=== PATIENT | male | born 1945 | race African-American/Black ===

== ENCOUNTER 2017-09-09 02:05 | Outpatient (CLI) | payer MEDICARE | END 2017-09-09 02:06 | disposition home or self-care (01) | LOC: BICULT 02:05 | PROVIDERS: ATTEND Family Medicine | DX: G45.9 Transient cerebral ischemic attack, unspecified (principal) | CPT/HCPCS: 93880 ==

== ENCOUNTER → 2017-11-13 | Day surgery (SDC) | payer MEDICARE ==
[~2017-11-13] MED LIST: Iopamidol 370 76% 100 ML VIAL ONE
--- NOTE | 2017-11-13 09:08 | MRI ---
MRI BRAIN WITHOUT CONTRAST: Date: 11/13/17 HISTORY: Transient neurological symptoms, mental status change. FINDINGS: Correlation is made with the CT scan of 08/30/17. No restricted diffusion is seen. There are multiple foci of T2 prolongation in the periventricular wh ite matter consistent with chronic small vessel ischemic disease. There is blooming artifact in the b sarahi ganglia on gradient echo sequences due to calcifications seen on the CT scan. No evidence of inf arct, hemorrhage, midline shift, or abnormal extra-axial fluid collections are seen. The ventricular size is appropriate and the basilar cisterns are patent. There is mucosal disease in the paranasal si nuses. An old lacunar infarction in the left thalamus is again seen. IMPRESSION: 1. Chronic small vessel ischemic disease. 2. No evidence of acute intracranial process. 3. Paranasal sinus disease. POS: C
--- NOTE | 2017-11-13 10:11 | CT ---
CONTRAST ENHANCED CTA CAROTID ARTERIES: History: Transient neurologic symptoms, R29.818. Patient states he has two episodes of TIAs. Technique: Contrast enhanced CTA carotid arteries performed. 2D and 3D reconstructed images performed on an independent 3D workstation. FINDINGS: There is a 2.2 x 1.0 cm right paratracheal lymph node. No definite evidence of thyroid abnormality seen. No significant evidence of deep cervical lymphadeno shayna seen. The aortic arch demonstrates calcifications. Some calcifications also seen in the right subclavian ar sonido. The right and left common carotid arteries are patent. There is atherosclerotic plaque in the proximal most portion of the right ICA resulting in approximat joan 50% right ICA stenosis. Atherosclerotic plaque also seen in the origin of the left ICA resulting in approximately 70% left ICA stenosis. IMPRESSION: Approximately 70% left ICA and 50% right ICA origin stenosis due to calcified plaque. POS: [facility]
== END ==
LOC: MRI 07:31 → EEG 07:32
PROVIDERS: ATTEND Student in an Organized Health Care Education/Training Program
DX: I65.23 Occlusion and stenosis of bilateral carotid arteries (principal); R41.82 Altered mental status, unspecified; R29.818 Other symptoms and signs involving the nervous system
CPT/HCPCS: 70498; 70551; 95816

== ENCOUNTER 2018-05-26 06:10 | Day surgery (SDC) | payer MEDICARE ==
[2018-05-23 15:07] VITALS: BMI 28.3
[2018-05-26] MEDS ORDERED: Lidocaine 1% (PF) 30 ML VIAL ONE (06:34)
[2018-05-26 06:42] LABS: #Basophils 0.1 thou/uL (0.0-0.2); #Eosinphils 0.3 thou/uL (0.0-0.7); #Lymphocytes 1.7 thou/uL (1.20-3.40); #Monocytes 0.7 thou/uL (0.11-0.59); #Neutrophils 3.3 thou/uL (1.40-6.50); %Basophils 0.9 % (0.0-1.0); %Eosinophils 4.7 % (0.0-10.0); %Lymphocytes 27.9 % (21.0-51.0); %Monocytes 12.2 % (0.0-10.0); %Neutrophils 54.3 % (42.0-75.0); Hemoglobin 15.7 g/dL (14.0-18.0); Mean Corpuscular HGB CONC 32.3 g/dL (32.0-36.0); Mean Corpuscular Volume 89.7 fL (78.0-98.0); Mean Platelet Volume 7.8 fL (7.4-10.4); Platelet Count 273 thou/uL (130-400); RBC Distribution Width 12.3 % (11.5-14.5); Red Blood Cell (RBC) Count 5.44 mill/uL (4.70-6.10)
[2018-05-26 07:04] LABS: Anion Gap 12 mmol/L (10-20); BUN (Urea Nitrogen) 17 mg/dL (8.4-25.7); Calc. Creatinine Clearance 62 mL/min (70-130); Calcium 10.1 mg/dL (7.8-10.44); Carbon Dioxide 25 mmol/L (23-31); Chloride 108 mmol/L (98-107); Estimated GFR-MDRD 57; Glucose 101 mg/dL (83-110); Potassium 4.1 mmol/L (3.5-5.1); Sodium 141 mmol/L (136-145)
[2018-05-26] MEDS ORDERED: Midazolam HCl 2 mg/2 ml Vial ONE (07:13)
[2018-05-26] MEDS ORDERED: Fentanyl 100 MCG/2 ML VIAL ONE (07:13)
--- NOTE | 2018-05-26 08:05 | OP ---
DATE OF PROCEDURE: 05/26/2018 PROCEDURE PERFORMED: Aortography with right lower extremity runoff. PREOPERATIVE DIAGNOSES: Peripheral vascular disease with right lower extremity claudication. POSTOPERATIVE DIAGNOSES: Peripheral vascular disease with right lower extremity claudication. SURGEON: Alex Vázquez M.D. ANESTHESIA: 1% lidocaine local anesthesia with intravenous sedation consisting of 1 mg of Versed an d 25 mcg of fentanyl. INDICATIONS: The patient is a 72-year-old man with known peripheral vascular disease whose right low er extremity claudication has progressed to the point that he wishes to pursue invasive management. FINDINGS: Intact aorta and iliac system with a complex plaque at the right common femoral bifurcatio n and occlusion of the superficial femoral at its origin. There was a mid SFA occlusion with extensi ve calcific disease visible. The popliteal artery reconstituted above the knee, but then occluded ju st below the knee joint and there was poor visualization of the trifurcation vessels. NARRATIVE REPORT: After informed consent was obtained, the patient was placed in supine position on the cardiac catheterization table and his groins were prepped and draped in sterile fashion. The pat ient was given intravenous sedation and ultrasound was used to examine the patient's groin. A microp uncture technique was used to cannulate the left common femoral artery and a guidewire placed through that needle. There was an exchange of microsheath and then over a wire, a standard sheath. A Bents on wire was advanced into the aorta after first aspirating on the side port of the sheath to confirm intraarterial positioning. A Contra catheter was placed over the wire and a flush aortogram was perf ormed. This was repeated to get better visualization of the right-sided iliac system and then the wi re was manipulated to guide it down into the right iliac system and then the contra wire advanced ove r it with the Contra catheter positioned in the distal right iliac system. Additional contrast was i njected to image the iliofemoral system and then to follow the dye down the leg. No attempts at a di stinct visualization of the trifurcation vessels was made as the patient has mild renal insufficiency and there was no indication for a distal bypass. Over a wire, the catheter was removed. The sheath was then removed and hemostasis achieved with direct pressure.
[2018-05-26] MEDS ORDERED: Iopamidol 370 76% 100 ML VIAL ONE (11:04)
== END 2018-05-26 15:40 | disposition home or self-care (01) ==
LOC: CCL 06:10
PROVIDERS: ATTEND Thoracic Surgery (Cardiothoracic Vascular Surgery)
PROC: B41D1ZZ Fluoroscopy of Aorta and Bilateral Lower Extremity Arteries using Low Osmolar Contrast (ICD-10-PCS; principal; 2018-05-26)
DX: I70.211 Atherosclerosis of native arteries of extremities with intermittent claudication, right leg (principal); I10 Essential (primary) hypertension; E78.2 Mixed hyperlipidemia; I65.23 Occlusion and stenosis of bilateral carotid arteries; Z87.891 Personal history of nicotine dependence; Z79.82 Long term (current) use of aspirin; Z79.899 Other long term (current) drug therapy
CPT/HCPCS: 36246; 75820; 76942; 80048; 85025; C1769; 36415; 99152; J1644; J2001; J2250; J3010

== ENCOUNTER 2018-06-02 08:31 | Inpatient (IN) | payer MEDICARE ==
--- NOTE | 2018-06-02 10:42 | RAD ---
PA AND LATERAL CHEST RADIOGRAPH: Date: 06-02-18 History: Pre-operative evaluation. Comparison: 04-15-10 FINDINGS: Cardiac silhouette is mildly enlarged. There is prominence of the right hilar structures which likely represents ectasia of the ascending thoracic aorta. 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 Vas cular calcifications are seen in the aortic arch. Pulmonary vasculature is within normal limits and t he lungs are clear. Mild degenerative changes are seen in the spine. IMPRESSION: 1. Suggestion of ectasia and tortuosity of the ascending thoracic aorta. This appearance is similar t o truck body builder apprentice view of the chest on CT of the neck on 11-13-17. 2. Lungs are clear, and no acute cardiopulmonary process is identified. POS: [facility]
[2018-06-02] MEDS ORDERED: Heparin 10,000 UNITS/ 10 ML VIAL ONE (12:07)
[2018-06-02] MEDS ORDERED: Dexamethasone 20 MG/5 ML VIAL ONE (12:07)
[2018-06-02] MEDS ORDERED: Vecuronium 10 MG VIAL ONE (12:07)
[2018-06-02] MEDS ORDERED: Lidocaine 1% PF 5 ML VIAL ONE (12:07)
[2018-06-02] MEDS ORDERED: PROPOFOL 200 MG/20 ML VIAL ONE (12:07)
[2018-06-02] MEDS ORDERED: ePHEDrine/0.9% NaCl/PF SYRINGE 50 mg/10 ml ONE (12:07)
[2018-06-02] MEDS ORDERED: PHENYLEPHRINE-NS 100 MCG/ML 10 ML SYRINGE ONE ×2 (12:07→15:34)
[2018-06-02] MEDS ORDERED: Glycopyrrolate 0.2 MG/ML 5 ML SYRINGE ONE (12:07)
[2018-06-02] MEDS ORDERED: Fentanyl 100 MCG/2 ML VIAL ONE ×2 (12:34→17:24)
[2018-06-02] MEDS ORDERED: Heparin 5,000 UNITS/ML VIAL ONE (12:37)
[2018-06-02] MEDS ORDERED: Protamine Sulfate 50 MG/5 ML VIAL ONE ×2 (12:37→15:58)
[2018-06-02] MEDS ORDERED: CEFAZOLIN/Water 2 GM/20 ML SYRINGE ONE (12:44)
[2018-06-02] MEDS ORDERED: Heparin 10,000 UNITS/1 ML VIAL ONE ×2 (13:41)
[2018-06-02] MEDS ORDERED: Fentanyl 100 MCG/2 ML VIAL SLOW IVP PRN (17:53)
[2018-06-02] MEDS ORDERED: HYDROcodone/Acetaminophen 5/325 mg Tablet PO PRN ×2 (17:53)
[2018-06-02] MEDS ORDERED: Ondansetron HCl/PF 4 MG/2 ML Vial IVP PRN (17:53)
[2018-06-02] MEDS ORDERED: Acetaminophen 325 MG TAB PO PRN (17:53)
[2018-06-02] MEDS ORDERED: Sodium Chloride 0.9% 1,000 ML IV SCH (17:53)
[2018-06-02 18:40] VITALS: BMI 27.9
--- NOTE | 2018-06-02 22:59 | OP ---
DATE OF PROCEDURE: 06/02/2018 PROCEDURE PERFORMED: Right iliofemoral endarterectomy and profundoplasty with saphenous vein patch a ngioplasty. PREOPERATIVE DIAGNOSIS: Peripheral vascular disease. POSTOPERATIVE DIAGNOSIS: Peripheral vascular disease. SURGEON: Willy Vázquez M.D. ANESTHESIA: General endotracheal anesthesia. INDICATIONS: The patient is a 72-year-old former smoker with known peripheral vascular disease. He had a transient improvement in his right lower extremity claudication with conservative management, b ut he has recently had worsening of his symptoms. Arteriography demonstrated complex plaque at the c ommon femoral bifurcation and trifurcation vessel disease. He is now taken to the operating room for femoral endarterectomy to relieve his claudication. FINDINGS: Extensive hard plaque extending several centimeters proximally into the distal external il iac and distally into the superficial femoral and profunda. Plaque at the common femoral was occlusi ve and extended occlusively to about 2 cm into the SFA. The vein was of good quality. NARRATIVE REPORT: After informed consent was obtained, the patient was taken to the operating room a nd placed in the supine position on the operating table. After the induction of general anesthesia, the patient's lower abdomen, right groin and right lower extremity were prepped and draped in sterile fashion. An oblique incision about a fingerbreadth below and parallel to the right groin crease was made with a scalpel and electrocautery. The dissection was carried through the subcutaneous tissue. The superficial femoral artery was exposed and the dissection was carried proximally and distally. The common femoral system was skeletonized extending beyond the inguinal ligament and the circumflex vessels. It was carried distally onto the SFA where the SFA became soft and down to major bifurcati on point of the profunda. Profunda veins were ligated and divided. The saphenous vein was then iden tified at the saphenofemoral junction and taken down distally using a skin bridge counter incision in order to harvest an adequate length of saphenous vein roughly comparable to the length of a pair of Metzenbaum scissors as previously measured in order to be able to patch both the SFA and the profunda . After adequate circulation time of heparin, vascular clamps were used to control the external dinesh c proximally in the SFA and both branches of the profunda distally. A longitudinal arteriotomy was m jon in the proximal SFA and endarterectomized plane was developed in order to extend that arteriotomy upon to the common femoral and distal external iliac. This extended distally onto the SFA. An enda rterectomy plane was then extended. Plaque broke off distally in the superficial femoral. It was tr ansected at the external iliac level and further debridement and tailoring of that transection point were accomplished by an eversion technique with hemostats. Similarly, the endarterectomy was extende d into the profunda distally and the profunda broke off with a clean feathering edge. There was sign ificant step off at the distal feather in the SFA and that was tacked down with several interrupted m attress Prolene sutures. The saphenous vein was then bivalved and used to create a patch from the di stal external iliac down onto the SFA distally leaving the orifice of the profunda open. A second pi roney of vein was then used to patch the profunda and to complete closure of the patch at the origin of the profunda. The vascular clamps on the main named branches and Hemoclips on the side branches wer e removed. Bleeding point at the bifurcation of the common femoral on the patch was controlled with [id number] Prolene sutures. Protamine was administered. When hemostasis was adequate, a 19-Milton nch bulb suction drain was placed into the groin incision through the vein harvest tract and brought out through a separate incision and secured with suture. The two incisions were then closed in deep and superficial layers of subcutaneous Vicryl and running 4-0 Vicryl subcuticular suture. Wounds wer e dressed and the patient was awakened in the operating room and taken to the recovery area in good c ondition.
[2018-06-03 06:36] LABS: #Neutrophils 6.8 thou/uL (1.40-6.50); %Basophils 0.2 % (0.0-1.0); %Eosinophils 0.1 % (0.0-10.0); %Monocytes 11.7 % (0.0-10.0); %Neutrophils 76.9 % (42.0-75.0); Hemoglobin 13.9 g/dL (14.0-18.0); Mean Corpuscular HGB CONC 31.3 g/dL (32.0-36.0); Mean Corpuscular Hemoglobin 28.2 pg (27.0-31.0); Mean Corpuscular Volume 90.1 fL (78.0-98.0); Mean Platelet Volume 8.1 fL (7.4-10.4); Platelet Count 254 thou/uL (130-400); RBC Distribution Width 12.5 % (11.5-14.5); Red Blood Cell (RBC) Count 4.94 mill/uL (4.70-6.10); White Blood Cell (WBC) Count 8.8 thou/uL (4.8-10.8)
[2018-06-03 06:55] LABS: Anion Gap 12 mmol/L (10-20); BUN (Urea Nitrogen) 16 mg/dL (8.4-25.7); Calc. Creatinine Clearance 68 mL/min (70-130); Calcium 8.9 mg/dL (7.8-10.44); Carbon Dioxide 22 mmol/L (23-31); Chloride 109 mmol/L (98-107); Estimated GFR-MDRD 64; Glucose 120 mg/dL (83-110); Potassium 4.6 mmol/L (3.5-5.1); Sodium 138 mmol/L (136-145)
--- NOTE | 2018-06-03 07:44 | DIS ---
DATE OF ADMISSION: 06/02/2018 DATE OF DISCHARGE: 06/03/2018 PRINCIPAL DIAGNOSIS: Peripheral vascular disease. PROCEDURES PERFORMED: Right iliofemoral and profunda femoris endarterectomies with vein patch angiop lasty. HISTORY OF PRESENT ILLNESS/HOSPITAL COURSE: The patient is a 72-year-old man with a known peripheral vascular disease that has symptomatically progressed. He had a significant common femoral bifurcati on disease and he underwent a femoral endarterectomy and patch angioplasty. He had an uneventful pos toperative recovery overnight in the Intensive Care Unit. Today on postoperative day 1, he is afebri le with stable vital signs. He has only had 20 mL out of a drain was placed in the vein harvest trac t extending on up into the dissection bed of the femoral system. He so far is comfortable, but has n ot ambulated very much. He will be discharged home when he demonstrates that he can void adequately and his mobility and pain control are adequate.
[2018-06-03] MEDS ORDERED: Fish Oil 1,000 MG CAP PO SCH (09:00)
[2018-06-03] MEDS ORDERED: Aspirin 325 MG TAB PO SCH ×2 (09:00)
[2018-06-03] MEDS ORDERED: Prevnar 13-Val Conj/PF 0.5 ML SYRINGE IM ONE (09:00)
[2018-06-03] MEDS ORDERED: Amlodipine 5 mg/Benazepril 20 mg CAP PO SCH (09:00)
[2018-06-03] MEDS ORDERED: Atorvastatin Calcium 40 MG TAB PO SCH (09:00)
[2018-06-03] MEDS ORDERED: Multivit, Therapeutic 1 TAB PO SCH (09:00)
[2018-06-03 12:09] VITALS: TEMP 97.9
[2018-06-03 12:48] VITALS: BP 148/88
== END 2018-06-03 19:00 | disposition home or self-care (01) | DRG 272 ==
LOC: SURG A 08:37 → CCU 17:32 → 2NO 06-03 09:06
PROVIDERS: ADMIT Thoracic Surgery (Cardiothoracic Vascular Surgery); ATTEND Thoracic Surgery (Cardiothoracic Vascular Surgery)
PROC: [UNRECOGNIZED PROCEDURE] (principal; 2018-06-02)
PROC: 04UK0JZ Supplement Right Femoral Artery with Synthetic Substitute, Open Approach (ICD-10-PCS; 2018-06-02)
PROC: 04CK0Z6 (ICD-10-PCS; 2018-06-02)
DX: I70.203 Unspecified atherosclerosis of native arteries of extremities, bilateral legs (principal); I73.9 Peripheral vascular disease, unspecified; Z87.891 Personal history of nicotine dependence; I10 Essential (primary) hypertension; E78.5 Hyperlipidemia, unspecified
CPT/HCPCS: 36415; 36416; 71046; 80048; 85025; 86850; 86900; 86901; 93005; 93010; 96374; A4216; G8978-GP-CI; G8979-GP-CI; G8980-GP-CI; J1100; J1642; J1644; J2001; J2704; J2720; J3010

== ENCOUNTER 2019-01-03 10:52 | Emergency (ER) | payer MEDICARE ==
[2019-01-03] MEDS ORDERED: Ketorolac Tromethamine 30 MG/ML VIAL ONE (11:49)
[2019-01-03 12:19] LABS: #Basophils 0.1 thou/uL (0.0-0.2); #Eosinphils 0.2 thou/uL (0.0-0.7); #Lymphocytes 1.6 thou/uL (1.20-3.40); #Monocytes 0.7 thou/uL (0.11-0.59); #Neutrophils 3.9 thou/uL (1.40-6.50); %Basophils 1.5 % (0.0-1.0); %Eosinophils 2.7 % (0.0-10.0); %Lymphocytes 24.9 % (21.0-51.0); %Monocytes 10.7 % (0.0-10.0); %Neutrophils 60.3 % (42.0-75.0); Hemoglobin 16.8 g/dL (14.0-18.0); Mean Corpuscular HGB CONC 32.4 g/dL (32.0-36.0); Mean Corpuscular Hemoglobin 29.1 pg (27.0-31.0); Mean Corpuscular Volume 89.7 fL (78.0-98.0); Mean Platelet Volume 8.2 fL (7.4-10.4); Platelet Count 246 thou/uL (130-400); RBC Distribution Width 12.6 % (11.5-14.5); Red Blood Cell (RBC) Count 5.76 mill/uL (4.70-6.10); White Blood Cell (WBC) Count 6.5 thou/uL (4.8-10.8)
[2019-01-03 12:26] LABS: Bilirubin Negative (Negative); Blood, Urine Negative (Negative); Clarity CLEAR (Clear); Glucose, Urine (Dipstick) Negative (Negative); Leukocyte Negative (Negative); Nitrite Negative (Negative); Protein, Urine (Dipstick) Negative (Neg-Trace); Specific Gravity, Urine 1.022 (1.002-1.036); pH, Urine 5.5 (5.0-9.0)
--- NOTE | 2019-01-03 12:27 | ULT ---
EXAM: US Testicular W Doppler PROVIDED CLINICAL HISTORY: Left testicular pain COMPARISON: None FINDINGS: Right testicle measures about 3.7 x 2.2 x 1.9 cm and demonstrates a normal grayscale sonographic appe arance. Right epididymis appears normal. Left testicle measures about 3.7 x 2.4 x 2.2 cm and demonstrates no significant abnormality. Subcenti meter cystic structures are seen within the left testicle. The left epididymis demonstrates a 8 mm cyst. Color Doppler and spectral analysis of the testicular waveforms demonstrates flow bilaterally. There are bilateral mild hydroceles. IMPRESSION: 1. Flow is documented to both testicles. 2. Mild bilateral hydroceles.
[2019-01-03 12:54] LABS: ALT (SGPT) 35 U/L (8-55); AST (SGOT) 25 U/L (5-34); Albumin 4.4 g/dL (3.4-4.8); Alkaline Phosphatase 84 U/L (40-150); Anion Gap 15 mmol/L (10-20); BUN (Urea Nitrogen) 19 mg/dL (8.4-25.7); Bilirubin, Total 0.7 mg/dL (0.2-1.2); Calc. Creatinine Clearance 0 mL/min (70-130); Calcium 10.1 mg/dL (7.8-10.44); Carbon Dioxide 24 mmol/L (23-31); Chloride 107 mmol/L (98-107); Estimated GFR-MDRD 57; Globulin 2.5 g/dL (2.4-3.5); Glucose 90 mg/dL (83-110); Potassium 4.7 mmol/L (3.5-5.1); Protein, Total 6.9 g/dL (5.8-8.1); Sodium 141 mmol/L (136-145)
== END 2019-01-03 13:44 | disposition home or self-care (01) ==
LOC: ERS 10:52
DX: S39.011A Strain of muscle, fascia and tendon of abdomen, initial encounter (principal); M54.5 Low back pain; E78.5 Hyperlipidemia, unspecified; I10 Essential (primary) hypertension; X58.XXXA Exposure to other specified factors, initial encounter
CPT/HCPCS: 36415; 76870; 80053; 81003; 85025; 93976; 96365; 96366; J1885

== ENCOUNTER 2019-05-18 13:31 | Outpatient (CLI) | payer OTHER ==
--- NOTE | 2019-05-18 14:50 | MRI ---
MRI lumbar spine noncontrast HISTORY: Low back pain. Left leg radiculopathy. FINDINGS: Vertebral body heights are maintained. Desiccation of all of the intervertebral discs. T11-12: Disc space narrowing. Posterior disc bulge. Moderate stenosis of each neural foramen. T12-L1: Osteophytosis. Central canal is patent. Mild stenosis of each neural foramen.. L1-2: Mild circumferential degenerative changes. Central canal is patent. Mild right and moderate lef t foraminal stenoses. L2-3: Disc space narrowing. Prominent posterior disc protrusion with compression of the thecal sac. A dditional circumferential degenerative changes. Very severe stenosis of the central canal. Severe stenosis of each neural foramen. L3-4: Disc space narrowing. Posterior disc bulge and circumferential degenerative changes. Moderate s tenosis of the central canal. Severe stenosis of each neural foramen. L3-4: Complete loss of disc space. Grade 1 degenerative spondylolisthesis. Discogenic endplate change s of the bone marrow. Circumferential degenerative changes with moderate to severe stenosis of the central canal. Moderate right and very severe left foraminal stenoses. L5-S1: Disc space narrowing. Posterior disc bulge and circumferential degenerative changes. Mild sten osis of the central canal. Severe bilateral foraminal stenoses. IMPRESSION: Prominent multilevel degenerative changes throughout the lumbar spine as detailed above. Central canal stenosis is most severe at the L2-3 level. Foraminal stenosis is most severe at the left L4-5 neural foramen, correlating with the left L4 nerve root. In the appropriate clinical setting, and surgical evaluation would be warranted.
== END 2019-05-18 13:32 | disposition home or self-care (01) ==
LOC: BICMRI 13:31
PROVIDERS: ATTEND Family Medicine
DX: M54.30 Sciatica, unspecified side (principal); M47.816 Spondylosis without myelopathy or radiculopathy, lumbar region; M47.817 Spondylosis without myelopathy or radiculopathy, lumbosacral region; M48.061 Spinal stenosis, lumbar region without neurogenic claudication
CPT/HCPCS: 72148

== ENCOUNTER 2019-10-05 05:29 | Day surgery (SDC) | payer MEDICARE ==
[2019-10-02 11:00] VITALS: BMI 29.0
[2019-10-05] MEDS ORDERED: EPINEPHrine 1 MG/ML AMP ONE (06:12)
[2019-10-05] MEDS ORDERED: Thrombin 5000 UNITS/5 ML VIAL ONE (06:12)
[2019-10-05] MEDS ORDERED: Bupivacaine PF 0.5% 30 ML VIAL ONE (06:12)
[2019-10-05] MEDS ORDERED: Fentanyl 250 MCG/5 ML VIAL ONE (06:25)
[2019-10-05 06:31] LABS: Hemoglobin 14.6 g/dL (14.0-18.0); Mean Corpuscular HGB CONC 31.1 g/dL (32.0-36.0); Mean Corpuscular Hemoglobin 27.5 pg (27.0-31.0); Mean Corpuscular Volume 88.4 fL (78.0-98.0); Mean Platelet Volume 8.2 fL (7.4-10.4); Platelet Count 240 thou/uL (130-400); RBC Distribution Width 11.8 % (11.5-14.5); Red Blood Cell (RBC) Count 5.29 mill/uL (4.70-6.10); White Blood Cell (WBC) Count 5.8 thou/uL (4.8-10.8)
[2019-10-05 06:43] LABS: Anion Gap 12 mmol/L (10-20); BUN (Urea Nitrogen) 14 mg/dL (8.4-25.7); Calc. Creatinine Clearance 65 mL/min (70-130); Calcium 9.5 mg/dL (7.8-10.44); Carbon Dioxide 26 mmol/L (23-31); Chloride 107 mmol/L (98-107); Estimated GFR-MDRD 61; Glucose 94 mg/dL (83-110); Potassium 4.1 mmol/L (3.5-5.1); Sodium 141 mmol/L (136-145)
--- NOTE | 2019-10-05 08:41 | OP ---
DATE OF PROCEDURE: 10/05/2019 INVENTORY CONTROL MANAGER: Maurisio Whitten PA-C INDICATION: Pain. DIAGNOSIS: Lumbar stenosis with claudication. PROCEDURE PERFORMED: L2-L3 lumbar decompression. ANESTHESIA: General. DESCRIPTION OF PROCEDURE: The patient was brought into the operating room and placed under general anesthesia. He was flipped from the supine to prone position on operating room table. A linear incision was planned at the L2-L3 segment. After prepping and draping and after an appropriate operative pause, the incision was created. The soft tissues were swept away from midline. Self-retaining retractors were placed in the wound for optimal exposure. After confirming the appropriate level with C-arm fluoroscopy, an Adson rongeur was used to remove the spinous processes at the L2-L3 segment. Then a high-speed cutting drill bit as well as 2, 3, and 4 mm Kerrisons was then used to perform a laminectomy at L2-L3 segment. The laminectomy was extended laterally to encompass the medial third of both facet joints in order to adequately decompress the lateral recesses. After completing the decompression, the wound was irrigated. Hemostasis was maintained throughout. The wound was then closed in anatomic layers and a pressure dressing was applied. There were no known procedural complications. Job ID: [id number]
[2019-10-05] MEDS ORDERED: Tamsulosin HCl 0.4 MG CAP ONE (08:48)
[2019-10-05] MEDS ORDERED: PROPOFOL 200 MG/20 ML VIAL ONE (09:03)
[2019-10-05] MEDS ORDERED: Glycopyrrolate 0.2 MG/ML 5 ML SYRINGE ONE (09:03)
[2019-10-05] MEDS ORDERED: Rocuronium Bromide 10 MG/ML (10ML VIAL) ONE (09:03)
[2019-10-05] MEDS ORDERED: Lidocaine 1% PF 5 ML VIAL ONE (09:03)
[2019-10-05] MEDS ORDERED: Ondansetron PF 4 MG/2 ML Vial ONE (09:03)
[2019-10-05] MEDS ORDERED: hydrALAZINE 20 MG/ML VIAL ONE (09:11)
[2019-10-05] MEDS ORDERED: Morphine 4 MG/ML VIAL ONE (09:37)
[2019-10-05] MEDS ORDERED: Acetaminophen/Codeine 30-300mg Tablet ONE (09:38)
== END 2019-10-05 11:45 | disposition home or self-care (01) ==
LOC: SDC 05:29
PROVIDERS: ATTEND Neurological Surgery
PROC: 01NB0ZZ Release Lumbar Nerve, Open Approach (ICD-10-PCS; principal; 2019-10-05)
DX: M48.062 Spinal stenosis, lumbar region with neurogenic claudication (principal); Z79.899 Other long term (current) drug therapy
CPT/HCPCS: 36415; 76000; 80048; 85027; 93005; 93010; J0171; J0360; J0690; J2001; J2270; J2405; J2704; J3010; S0020